=== PATIENT | female | born 1980 | race African-American/Black ===

== ENCOUNTER 2018-03-06 00:39 | Emergency (ER) | payer SELFPAY ==
[~2018-03-06] VITALS: Ht 160 cm; Wt 88.0 kg
--- NOTE | 2018-03-06 01:11 | PHYS DOC ---
Past Medical History Past Medical History: No Pertinent History Additional Past Surgical Histo: DENTAL, LEFT KNEE, left fallopian tube resection Alcohol Use: None Drug Use: None Adult General Chief Complaint Chief Complaint: RIB PAIN HPI HPI Patient is a 37 year old female who presents with right-sided chest discomfort. This has been present for the past 3 days. No significant relief with home [place] p.m. Some nausea and vomiting yesterday that has since resolved. No PE risk factors. Pain is respirophasic in nature as well as worse with movement. No significant association with food. No trauma. No fever. No cough. Pain is moderate to severe in intensity[] Review of Systems Review of Systems Constitutional: Denies fever or chills [] Eyes: Denies change in visual acuity, redness, or eye pain [] HENT: Denies nasal congestion or sore throat [] Respiratory: Denies cough or shortness of breath [] Cardiovascular: No additional information not addressed in HPI [] GI: See history of present illness[] : Denies dysuria or hematuria [] Musculoskeletal: Denies back pain or joint pain [] Integument: Denies rash or skin lesions [] Neurologic: Denies headache, focal weakness or sensory changes [] Endocrine: Denies polyuria or polydipsia [] All other systems were reviewed and found to be within normal limits, except as documented in this note. Current Medications Current Medications Current Medications Medications (Trade) Dose Ordered Sig/Salyl Start Time Stop Time Status Last Admin Dose Admin Hyoscyamine (Anaspaz) 0.125 mg ONCE ONCE 03/06/18 01:30 03/06/18 01:31 DC 03/06/18 01:45 0.125 MG Metoclopramide HCl (Reglan Vial) 10 mg 1X ONCE 03/06/18 01:30 03/06/18 01:31 DC 03/06/18 01:45 10 MG Allergies Allergies Allergies Coded Allergies Type Severity Reaction Last Updated Verified levofloxacin Allergy Intermediate 03/06/18 Yes pseudoephedrine Allergy Intermediate 03/06/18 Yes Physical Exam Physical Exam Constitutional: Well developed, well nourished, no acute distress, non-toxic appearance. [] HENT: Normocephalic, atraumatic, bilateral external ears normal, oropharynx moist, no oral exudates, nose normal. [] Eyes: PERRLA, EOMI, conjunctiva normal, no discharge. [] Neck: Normal range of motion, no tenderness, supple, no stridor. [] Cardiovascular:Heart rate regular rhythm, no murmur [] Lungs & Thorax: Bilateral breath sounds clear to auscultation [] Abdomen: Bowel sounds normal, soft, tenderness along the right low ribs, as well as right upper quadrant of the abdomen. There is no rebound, no guarding, no rigidity, patient sits up without any difficulty., no masses, no pulsatile masses. [] Skin: Warm, dry, no erythema, no rash. [] Back: No tenderness, no CVA tenderness. [] Extremities: No tenderness, no cyanosis, no clubbing, ROM intact, no edema. [] Neurologic: Alert and oriented X 3, normal motor function, normal sensory function, no focal deficits noted. [] Psychologic: Affect normal, judgement normal, mood normal. [] Current Patient Data Vital Signs Vital Signs Date Time Temp Pulse Resp B/P (MAP) Pulse Ox O2 Delivery O2 Flow Rate FiO2 03/06/18 00:42 98.5 52 18 201/95 (130) 99 Room Air 98.5 Lab Values Laboratory Tests Test 03/06/18 01:25 03/06/18 01:30 03/06/18 01:35 03/06/18 01:50 Urine Collection Type Unknown Urine Color Yellow Urine Clarity Clear Urine pH 6.5 Urine Specific [place] 1.025 Urine Protein Negative mg/dL (NEG-TRACE) Urine Glucose (UA) Negative mg/dL (NEG) Urine Ketones (Stick) Negative mg/dL (NEG) Urine Blood Moderate (NEG) Urine Nitrite Negative (NEG) Urine Bilirubin Negative (NEG) Urine Urobilinogen Dipstick 1.0 mg/dL (0.2 mg/dL) Urine Leukocyte Esterase Negative (NEG) Urine RBC 1-2 /HPF (0-2) Urine WBC 1-4 /HPF (0-4) Urine Squamous Epithelial Cells Few /LPF Urine Bacteria Mod /HPF (0-FEW) Urine Mucus Mod /LPF White Blood Count 12.5 x10^3/uL (4.0-11.0) H Red Blood Count 4.01 x10^6/uL (3.50-5.40) Hemoglobin 12.9 g/dL (12.0-15.5) Hematocrit 36.8 % (36.0-47.0) Mean Corpuscular Volume 92 fL (79-100) Mean Corpuscular Hemoglobin 32 pg (25-35) Mean Corpuscular Hemoglobin Concent 35 g/dL (31-37) Red Cell Distribution Width 13.9 % (11.5-14.5) Platelet Count 333 x10^3/uL (140-400) Neutrophils (%) (Auto) 56 % (31-73) Lymphocytes (%) (Auto) 34 % (24-48) Monocytes (%) (Auto) 8 % (0-9) Eosinophils (%) (Auto) 2 % (0-3) Basophils (%) (Auto) 1 % (0-3) Neutrophils # (Auto) 7.0 x10^3uL (1.8-7.7) Lymphocytes # (Auto) 4.3 x10^3/uL (1.0-4.8) Monocytes # (Auto) 1.0 x10^3/uL (0.0-1.1) Eosinophils # (Auto) 0.2 x10^3/uL (0.0-0.7) Basophils # (Auto) 0.1 x10^3/uL (0.0-0.2) Prothrombin Time 12.8 SEC (11.7-14.0) Prothrombin Time INR 1.0 (0.8-1.1) D-Dimer ([place]anda) 0.32 ug/mlFEU (0.00-0.50) POC Urine HCG, Qualitative Hcg negative (Negative) Sodium Level 139 mmol/L (136-145) Potassium Level 3.6 mmol/L (3.5-5.1) Chloride Level 105 mmol/L (98-107) Carbon Dioxide Level 25 mmol/L (21-32) Anion Gap 9 (6-14) Blood Urea Nitrogen 10 mg/dL (7-20) Creatinine 0.8 mg/dL (0.6-1.0) Estimated GFR (Cockcroft-Gault) 98.2 BUN/Creatinine Ratio 13 (6-20) Glucose Level 89 mg/dL (70-99) Calcium Level 8.8 mg/dL (8.5-10.1) Total Bilirubin 0.2 mg/dL (0.2-1.0) Aspartate Amino Transferase (AST) 11 U/L (15-37) L Alanine Aminotransferase (ALT) 19 U/L (14-59) Alkaline Phosphatase 81 U/L (46-116) Troponin I Quantitative < 0.017 ng/mL (0.000-0.055) Total Protein 7.0 g/dL (6.4-8.2) Albumin 3.3 g/dL (3.4-5.0) L Albumin/Globulin Ratio 0.9 (1.0-1.7) L Lipase 104 U/L (73-393) Laboratory Tests 03/06/18 01:30 Laboratory Tests 03/06/18 01:50 EKG EKG EKG shows sinus rhythm, 54 bpm, normal axis, QTC of 390 ms, no ST elevations, no old EKGs for comparison.[] Radiology/Procedures Radiology/Procedures Chest x-ray shows no acute features, no infiltrate, no effusion, no pneumothorax [] Course & Med Decision Making Course & Med Decision Making Pertinent Labs and Imaging studies reviewed. (See chart for details) ED course: Patient arrived, was placed in bed, in tolerated exam well. Patient received medication help with the discomfort which significantly improved her pain. After the return of the lab and imaging studies, these were discussed with the patient who voiced understanding. All questions were answered. Medical decision making: There is no evidence of pneumonia or pneumothorax. No evidence of this being an acute coronary syndrome, no evidence of this being a pulmonary embolism based on negative d-dimer. No evidence of , pancreatitis, nor other significant intra-abdominal pathology at this time. Her is no subdiaphragmatic free air on chest x-ray.[] Dragon Disclaimer Dragon Disclaimer This electronic medical record was generated, in whole or in part, using a voice recognition dictation system. Departure Departure Impression: Primary Impression: Chest pain Disposition: HOME, SELF-CARE Condition: GOOD Patient Instructions: Chest Pain (Nonspecific) Additional Instructions: Follow-up with your regular doctor in 2 days. If you do not have regular doctor , list of local low-cost clinics be provided for you. Return to the ER if worsening pain, difficulty breathing, or any other concerns Scripts Metoclopramide Hcl (REGLAN) 10 Mg Tablet 10 MG PO QIDACHS, #30 TAB 0 Refills Prov: GREGORIO WORTHINGTON DO 03/06/18 Hyoscyamine Sulfate (LEVSIN) 0.125 Mg Tablet 0.125 MG PO QID, #30 TAB Prov: GREGORIO WORTHINGTON DO 03/06/18 Problem Qualifiers Primary Impression: Chest pain Chest pain type: chest pain on breathing Qualified Codes: R07.1 - Chest pain on breathing GREGORIO WORTHINGTON DO Mar 06, 2018 01:11
[2018-03-06] MEDS ORDERED: METOCLOPRAMIDE HCL 10 MG/2 ML VIAL. IV ONE (01:30)
[2018-03-06] MEDS ORDERED: HYOSCYAMINE 0.125 MG TAB.RAPDIS PO ONE (01:30)
[2018-03-06 01:39] LABS: BASO # 0.1 x10^3/uL (0.0-0.2); BASO % 1 % (0-3); EOS # 0.2 x10^3/uL (0.0-0.7); EOS % 2 % (0-3); HEMATOCRIT 36.8 % (36.0-47.0); HEMOGLOBIN 12.9 g/dL (12.0-15.5); LYMPH # 4.3 x10^3/uL (1.0-4.8); LYMPH % 34 % (24-48); MEAN CORPUSCULAR HEMOGLOBIN 32 pg (25-35); MEAN CORPUSCULAR HGB CONC 35 g/dL (31-37); MEAN CORPUSCULAR VOLUME 92 fL (79-100); MONO % 8 % (0-9); NEUT % 56 % (31-73); PLATELET COUNT 333 x10^3/uL (140-400); RED BLOOD COUNT 4.01 x10^6/uL (3.50-5.40); RED CELL DISTRIBUTION WIDTH 13.9 % (11.5-14.5); WHITE BLOOD COUNT 12.5 x10^3/uL (4.0-11.0)
[2018-03-06 01:41] LABS: BILIRUBIN,URINE NEGATIVE (NEG); CLARITY,URINE CLEAR; COLOR,URINE YELLOW; NITRITE,URINE NEGATIVE (NEG); PH,URINE 6.5; PROTEIN,URINE NEGATIVE (NEG-TRACE)
[2018-03-06 01:48] LABS: PROTHROMBIN TIME PATIENT 12.8 SEC (11.7-14.0)
[2018-03-06 01:53] LABS: BACTERIA,URINE MOD /HPF (0-FEW); SQUAMOUS EPITHELIAL CELL,UR FEW /LPF
[2018-03-06 02:00] LABS: D-DIMER 0.32 ug/mlFEU (0.00-0.50)
[2018-03-06 02:15] LABS: CALCIUM 8.8 mg/dL (8.5-10.1); CREATININE 0.8 mg/dL (0.6-1.0); GFR 98.2; POTASSIUM 3.6 mmol/L (3.5-5.1)
[2018-03-06 02:21] LABS: ALBUMIN 3.3 g/dL (3.4-5.0); ALBUMIN/GLOBULIN RATIO 0.9 (1.0-1.7); TOTAL BILIRUBIN 0.2 mg/dL (0.2-1.0)
[2018-03-06] MEDS ORDERED: METO10TA81 PO (02:59)
[2018-03-06] MEDS ORDERED: HYOS0.1264 PO (02:59)
[2018-03-06 03:00] VITALS: BP 160/91
--- NOTE | 2018-03-06 03:52 | RAD ---
AP chest. HISTORY: Chest pain AP view was taken of the chest. Lungs are clear. Heart is normal in size without heart failure. There is no effusion. IMPRESSION: 1. No acute chest disease. Electronically signed by: Ronak Chicas MD (03/06/2018 3:47 AM) [facility]
--- NOTE | 2018-03-06 06:43 | EKG ---
[facility] [address] [place] [address] Test Date: 2018-03-06 Test Time: 01:28:46 Pat Name: DAIN LEVINE Department: Room: Gender: F Fur Farmer: HARSH : 1980 Requested By: GREGORIO WORTHINGTON Order Number: [id number] Reading MD: Measurements Intervals [place] Rate: 54 P: 39 AL: 182 QRS: 0 QRSD: 82 T: 8 QT: 410 QTc: 390 Interpretive Statements SINUS RHYTHM LEFT ATRIAL ABNORMALITY LEFTWARD AXIS R-S TRANSITION ZONE IN V LEADS DISPLACED TO THE LEFT ABNORMAL ECG RI6.01 No previous ECG available for comparison
== END 2018-03-06 03:10 | disposition home or self-care (01) ==
LOC: ER 00:39
DX: R07.1 Chest pain on breathing (principal); R11.2 Nausea with vomiting, unspecified; Z88.8 Allergy status to other drugs, medicaments and biological substances; Z88.1 Allergy status to other antibiotic agents
CPT/HCPCS: 36415; 71045; 80053; 81001; 81025; 83690; 84484; 85025; 85379; 85610; 93005; 96374; 99284; J2765

== ENCOUNTER → 2019-10-03 | Outpatient (CLI) | payer OTHER ==
[~2019-10-03] MED LIST: HYOS0.1264 PO; METO10TA81 PO
[2019-10-03 12:18] LABS: HEMATOCRIT 35.8 % (36.0-47.0); HEMOGLOBIN 12.3 g/dL (12.0-15.5); RED BLOOD COUNT 3.86 x10^6/uL (3.50-5.40); WHITE BLOOD COUNT 9.8 x10^3/uL (4.0-11.0)
[2019-10-03 12:36] LABS: ALBUMIN 3.3 g/dL (3.4-5.0); ALBUMIN/GLOBULIN RATIO 0.8 (1.0-1.7); CALCIUM 8.6 mg/dL (8.5-10.1); CREATININE 0.7 mg/dL (0.6-1.0); GFR 113.3; POTASSIUM 3.7 mmol/L (3.5-5.1); TOTAL BILIRUBIN 0.4 mg/dL (0.2-1.0); TOTAL PROTEIN 7.2 g/dL (6.4-8.2)
[2019-10-03 12:37] LABS: CHOLESTEROL/HDL RATIO 3.8
[2019-10-03 12:46] LABS: FREE T4 0.92 ng/dL (0.76-1.46); THYROID STIM HORMONE (TSH) 1.366 uIU/mL (0.358-3.74)
== END | disposition home or self-care (01) ==
LOC: LAB 11:51
PROVIDERS: ATTEND Family Medicine
DX: R03.0 Elevated blood-pressure reading, without diagnosis of hypertension (principal)
CPT/HCPCS: 36415; 80053; 80061; 84439; 84443; 85027

== ENCOUNTER 2019-12-01 21:33 | Emergency (ER) | payer OTHER ==
[~2019-12-01] VITALS: Ht 160 cm; Wt 88.6 kg
--- NOTE | 2019-12-01 22:15 | PHYS DOC ---
Past Medical History Past Medical History: No Pertinent History (SONIDO MONAE BIOMEDICAL EQUIPMENT SUPPORT SPECIALIST) Past Surgical History: Other Additional Past Surgical Histo: DENTAL, LEFT KNEE, left fallopian tube resection (SONIDO MONAE BIOMEDICAL EQUIPMENT SUPPORT SPECIALIST) Smoking Status: Never Smoker Alcohol Use: None Drug Use: None (SONIDO MONAE BIOMEDICAL EQUIPMENT SUPPORT SPECIALIST) General Adult EDM: Chief Complaint: HYPERTENSION HPI: HPI: Patient is a 39 year old female who presents with awoke this morning with right eye redness and pain. She states when she looks up or up into the right it is painful. She states that the vision is slightly blurred. She states that she does not wear a 30-day contacts and she took the contact out this morning when she woke up and had pain. Patient states is a sharp or stabbing type of pain. She states the eye is also watering. She denies injury or getting anything in the eye. She denies any discharge from the eye. She denies any itching of the eye. Patient is also hypertensive in triage in the 180s systolic. She rates her pain a 10 out of 10. States she does have an eye doctor she can follow-up with. (SONIDO MONAE BIOMEDICAL EQUIPMENT SUPPORT SPECIALIST) Review of Systems: Review of Systems: Constitutional: Denies fever or chills. [] Eyes: Right eye blurry. Right eye pain. Right eye redness and watering. Denies change in visual acuity. [] HENT: Denies nasal congestion or sore throat. [] Respiratory: Denies cough or shortness of breath. [] Cardiovascular: Denies chest pain or edema. [] GI: Denies abdominal pain, nausea, vomiting, bloody stools or diarrhea. [] : Denies dysuria. [] Musculoskeletal: Denies back pain or joint pain. [] Integument: Denies rash. [] Neurologic: Denies headache, focal weakness or sensory changes. [] Endocrine: Denies polyuria or polydipsia. [] Lymphatic: Denies swollen glands. [] Psychiatric: Denies depression or anxiety. [] (SONIDO MONAE BIOMEDICAL EQUIPMENT SUPPORT SPECIALIST) Heart Score: Risk Factors: Risk Factors: DM, Current or recent (<one month) smoker, HTN, HLP, family history of CAD, obesity. Risk Scores: Score 0 - 3: 2.5% MACE over next 6 weeks - Discharge Home Score 4 - 6: 20.3% MACE over next 6 weeks - Admit for Clinical Observation Score 7 - 10: 72.7% MACE over next 6 weeks - Early Invasive Strategies (SONIDO MONAE APRN) Allergies: Allergies: Allergies Coded Allergies Type Severity Reaction Last Updated Verified levofloxacin Allergy Intermediate 03/06/18 Yes pseudoephedrine Allergy Intermediate 03/06/18 Yes (SONIDO MONAE APRN) Physical Exam: PE: Constitutional: Well developed, well nourished, no acute distress, non-toxic appearance. [] HENT: Normocephalic, atraumatic, bilateral external ears normal, oropharynx moist, no oral exudates, nose normal. [] Eyes: PERRLA, EOMI, conjunctiva reddened, watering discharge, Pain when looking up or to the right. [] Neck: Normal range of motion, no tenderness, supple, no stridor. [] Cardiovascular:Heart rate regular rhythm, no murmur [] Lungs & Thorax: Bilateral breath sounds clear to auscultation [] Abdomen: Bowel sounds normal, soft, no tenderness, no masses, no pulsatile masses. [] Skin: Warm, dry, no erythema, no rash. [] Back: No tenderness, no CVA tenderness. [] Extremities: No tenderness, no cyanosis, no clubbing, ROM intact, no edema. [] Neurologic: Alert and oriented X 3, normal motor function, normal sensory function, no focal deficits noted. [] Psychologic: Affect normal, judgement normal, mood normal. [] (SONIDO MONAE APRN) Current Patient Data: Vital Signs: Vital Signs Date Time Temp Pulse Resp B/P (MAP) Pulse Ox O2 Delivery O2 Flow Rate FiO2 12/01/19 21:43 98.0 67 16 189/91 (123) 97 98.0 (SONIDO MONAE APRN) EKG: EKG: [] (SONIDO MONAE APRN) Radiology/Procedures: Radiology/Procedures: [] (SONIDO MONAE APRN) Course & Med Decision Making: Course & Med Decision Making Pertinent Labs and Imaging studies reviewed. (See chart for details) See HPI. Alert and oriented x4. Ambulatory with steady gait. Skin pink warm and dry. Speaks in full complete sentences. Eye Exam Visual accuity: See nursing note. Eye exam: PERRL, Extraocular muscles intact. No signs of ruptured globe. Sclera red. Red reflex present. Watering of the eye. Foreign body: No foreign bodies seen with examination or with lid flip exam. Lei-pen: 5 Fluorescein test: corneal abrasion outer aspect of the conjunctiva Anesthetic: Tetracaine Patient states she has a eye doctor she can follow-up with. Patient will be given erythromycin ointment to place in her eye. [] (SONIDO MONAE APRN) Course & Med Decision Making I have reviewed the PA/ELECTRIC MOTOR WINDER's note and Plan of Care. I was available for consultation as needed during the patient's visit in the emergency department. I agree with the clinical impression, plans and disposition. (CHRIS RAY MD) Dragon Disclaimer: Dragon Disclaimer: This electronic medical record was generated, in whole or in part, using a voice recognition dictation system. (SONIDO MONAE APRN) Departure Departure Impression: Primary Impression: Corneal abrasion due to contact lens Qualified Codes: H18.821 - Corneal disorder due to contact lens, right eye Disposition: HOME, SELF-CARE Condition: STABLE Referrals: MG WILLETT MD (PCP) Patient Instructions: Eye - Corneal Abrasion Additional Instructions: Follow-up with your eye doctor soon as possible. Use antibiotic ointment as prescribed. Do not wear your contact lenses until your eye has healed. Take medication as prescribed. Scripts Erythromycin Base (Erythromycin) 1 Gm Oint...g. 1 GM OP QID for 10 Days, #1 MISC Prov: SONIDO MONAE APRN 12/01/19 Hydrocodone/Apap 5-325 (NORCO 5-325 TABLET) 1 Each Tablet 1 TAB PO PRN Q6HRS PRN for PAIN, #5 TAB 0 Refills Prov: SONIDO MONAE APRN 12/01/19 SONIDO MONAE APRN Dec 01, 2019 22:15 CHRIS RAY MD Dec 01, 2019 23:19
[2019-12-01] MEDS ORDERED: HYDROcodone/APAP 5/325MG 1 TAB TABLET PO ONE (22:30)
[2019-12-01] MEDS ORDERED: TETRACAINE 0.5% OPHTH SOLUTION 4ML BOTTLE. OS ONE (22:30)
[2019-12-01] MEDS ORDERED: FLUORESCEIN OPHTH TEST STRIP. OD ONE (22:30)
[2019-12-01] MEDS ORDERED: ERYT1OIN6 OP (22:49)
[2019-12-01] MEDS ORDERED: HYDR-3164 PO (22:49)
[2019-12-01 22:53] VITALS: BP 149/89
== END 2019-12-01 22:54 | disposition home or self-care (01) ==
LOC: ER 21:33
DX: H18.821 Corneal disorder due to contact lens, right eye (principal); L53.9 Erythematous condition, unspecified; Z98.890 Other specified postprocedural states; Z88.1 Allergy status to other antibiotic agents; Z88.8 Allergy status to other drugs, medicaments and biological substances
CPT/HCPCS: 99283